=== PATIENT | female | born 1960 | race Caucasian/White ===

== ENCOUNTER 2019-09-28 23:46 | Emergency (ER) | payer BC ==
--- NOTE | 2019-09-29 07:37 | RAD ---
XR Shoulder Rt 3 View STANDARD History: Dislocation Comparison: None. Findings: No acute fracture or malalignment. Over a rib fractures. Advanced degenerative changes of t he acromioclavicular joint. Osteophyte formation of the glenoid. Impression: No acute osseous abnormality. No current dislocation.
== END 2019-09-29 00:51 | disposition home or self-care (01) ==
LOC: ERS 23:46
DX: M24.411 Recurrent dislocation, right shoulder (principal); I10 Essential (primary) hypertension
CPT/HCPCS: 23650

== ENCOUNTER 2020-10-05 12:01 | Inpatient (IN) | payer BC ==
[2020-10-05] MEDS ORDERED: Acetaminophen 325 MG TAB PO PRN (15:06)
[2020-10-05] MEDS ORDERED: Famotidine 20 MG TAB PO PRN (15:06)
[2020-10-05 15:53] VITALS: BMI 29.7
[2020-10-05] MEDS: cefTRIAXone\\ROCEPHIN 2 GM in Sodium Chloride 0.9% 100 ML IVPB SCH (18:00)
[2020-10-05] MEDS ORDERED: VANCOMYCIN 2 GRAM/400 ML BAG 2 GM in Premix Bag 1 BAG IVPB SCH (18:00)
[2020-10-06] MEDS: Vancomycin 1.5 GRAM/300 ML BAG 1.5 GM in Premix Bag 1 BAG IVPB SCH ×2 (05:30→17:55)
[2020-10-06 05:47] LABS: #Eosinphils 0.3 thou/uL (0.0-0.7); #Lymphocytes 1.1 thou/uL (1.20-3.40); #Monocytes 0.6 thou/uL (0.11-0.59); #Neutrophils 2.5 thou/uL (1.40-6.50); %Basophils 1.1 % (0.0-1.0); %Eosinophils 6.7 % (0.0-10.0); %Lymphocytes 24.2 % (21.0-51.0); %Monocytes 13.6 % (0.0-10.0); %Neutrophils 54.4 % (42.0-75.0); Hemoglobin 11.8 g/dL (12.0-16.0); Mean Corpuscular HGB CONC 33.6 g/dL (32.0-36.0); Mean Corpuscular Hemoglobin 32.8 pg (27.0-31.0); Mean Corpuscular Volume 97.6 fL (78.0-98.0); Mean Platelet Volume 7.4 fL (7.4-10.4); Platelet Count 294 thou/uL (130-400); RBC Distribution Width 11.4 % (11.5-14.5); Red Blood Cell (RBC) Count 3.58 mill/uL (4.20-5.40); White Blood Cell (WBC) Count 4.5 thou/uL (4.8-10.8)
[2020-10-06 06:13] LABS: ALT (SGPT) 15 U/L (8-55); AST (SGOT) 16 U/L (5-34); Albumin 3.5 g/dL (3.4-4.8); Alkaline Phosphatase 56 U/L (40-110); Anion Gap 11 mmol/L (10-20); BUN (Urea Nitrogen) 13 mg/dL (9.8-20.1); Bilirubin, Total 0.3 mg/dL (0.2-1.2); Calc. Creatinine Clearance 113 mL/min (70-130); Calcium 9.3 mg/dL (7.8-10.44); Carbon Dioxide 26 mmol/L (23-31); Chloride 107 mmol/L (98-107); Globulin 3.3 g/dL (2.4-3.5); Glucose 81 mg/dL (80-115); Potassium 4.2 mmol/L (3.5-5.1); Protein, Total 6.8 g/dL (5.8-8.1); Sodium 140 mmol/L (136-145)
[2020-10-06] MEDS: DULoxetine 30 MG CAP PO SCH (08:26)
[2020-10-06] MEDS ORDERED: Enoxaparin Sodium 40 MG/0.4 ML SYRINGE SC SCH (09:00)
[2020-10-06] MEDS ORDERED: Amlodipine 5 mg/Benazepril 20 mg CAP PO SCH (09:00)
[2020-10-06 11:37] LABS: SARS-CoV-2 PCR by NAA Not Detected (NotDetected)
[2020-10-06] MEDS: Lactated Ringer's 1,000 ML IV SCH ×2 (12:57→21:15)
[2020-10-06] MEDS ORDERED: Sodium Chloride 0.9% 100 ML ONE (15:59)
[2020-10-06] MEDS ORDERED: cefTRIAXone\\ROCEPHIN 2 GM VIAL ONE (15:59)
[2020-10-06] MEDS ORDERED: Fentanyl 100 MCG/2 ML VIAL ONE ×2 (16:09→17:07)
[2020-10-06] MEDS ORDERED: Midazolam HCl 2 mg/2 ml Vial ONE (16:10)
[2020-10-06] MEDS ORDERED: PROPOFOL 200 MG/20 ML VIAL ONE (16:21)
[2020-10-06] MEDS ORDERED: Ondansetron PF 4 MG/2 ML Vial ONE (16:21)
[2020-10-06] MEDS ORDERED: Acetaminophen 500 MG TAB PO PRN (16:53)
[2020-10-06] MEDS ORDERED: traMADol HCl 50 MG TAB PO PRN ×2 (16:53)
[2020-10-06] MEDS ORDERED: PACU-Morphine 4MG/ML VIAL SLOW IVP PRN (17:08)
[2020-10-06] MEDS ORDERED: Promethazine HCl 25 MG/ML VIAL IM PRN (17:08)
[2020-10-06] MEDS ORDERED: Promethazine HCl 25 MG/ML VIAL IVPB PRN (17:08)
[2020-10-06] MEDS ORDERED: Ondansetron HCl/PF 4 MG/2 ML Vial IVP PRN (17:08)
[2020-10-06] MEDS: cefTRIAXone\\ROCEPHIN 2 GM in Sodium Chloride 0.9% 100 ML IVPB SCH (17:47)
[2020-10-06] MEDS: Enoxaparin Sodium 40 MG/0.4 ML SYRINGE SC SCH (21:14)
[2020-10-07] MEDS: Lactated Ringer's 1,000 ML IV SCH ×2 (05:47→17:22)
[2020-10-07] MEDS: Vancomycin 1.5 GRAM/300 ML BAG 1.5 GM in Premix Bag 1 BAG IVPB SCH ×2 (06:25→19:12)
[2020-10-07] MEDS: DULoxetine 30 MG CAP PO SCH (08:12)
[2020-10-07] MEDS: cefTRIAXone\\ROCEPHIN 2 GM in Sodium Chloride 0.9% 100 ML IVPB SCH (18:31)
[2020-10-07] MEDS: Enoxaparin Sodium 40 MG/0.4 ML SYRINGE SC SCH (20:07)
[2020-10-08] MEDS: Lactated Ringer's 1,000 ML IV SCH (05:50)
[2020-10-08] MEDS: Vancomycin 1.5 GRAM/300 ML BAG 1.5 GM in Premix Bag 1 BAG IVPB SCH (05:50)
[2020-10-08] MEDS: DULoxetine 30 MG CAP PO SCH (08:26)
[2020-10-08 10:52] VITALS: BP 120/68; TEMP 97.8
== END 2020-10-08 14:55 | disposition home or self-care (01) | DRG 504 ==
LOC: ONC 13:22
PROVIDERS: ADMIT Student in an Organized Health Care Education/Training Program; ATTEND Student in an Organized Health Care Education/Training Program
PROC: 0Y6S0Z1 Detachment at Left 2nd Toe, High, Open Approach (ICD-10-PCS; principal; 2020-10-06)
DX: M86.8X8 Other osteomyelitis, other site (principal); L03.116 Cellulitis of left lower limb; G62.9 Polyneuropathy, unspecified; M20.42 Other hammer toe(s) (acquired), left foot; M20.41 Other hammer toe(s) (acquired), right foot; D50.9 Iron deficiency anemia, unspecified; I10 Essential (primary) hypertension; M14.671 Charcot's joint, right ankle and foot; Z91.040 Latex allergy status; Z88.2 Allergy status to sulfonamides; Z79.899 Other long term (current) drug therapy; Z90.49 Acquired absence of other specified parts of digestive tract; Z98.51 Tubal ligation status
CPT/HCPCS: 36415; 80053; 80202; 82565; 85025; 85652; 86140; 87040; 88305; 88311; J0696; J1650; J2250; J2405; J2704; J3010; J3370; J3490; U0003; U0005

== ENCOUNTER 2021-01-15 15:54 | Outpatient (CLI) | payer BC | END 2021-01-15 15:55 | disposition home or self-care (01) | LOC: BICRAD 15:54 | PROVIDERS: ATTEND Student in an Organized Health Care Education/Training Program | DX: L03.032 Cellulitis of left toe (principal); M79.89 Other specified soft tissue disorders; M21.42 Flat foot [pes planus] (acquired), left foot; M19.072 Primary osteoarthritis, left ankle and foot ==

== ENCOUNTER 2021-03-24 10:55 | Outpatient (CLI) | payer BC | END 2021-03-24 10:56 | disposition home or self-care (01) | LOC: BICMAMMO 10:55 | PROVIDERS: ATTEND Student in an Organized Health Care Education/Training Program | DX: Z12.31 Encounter for screening mammogram for malignant neoplasm of breast (principal) | CPT/HCPCS: 77063; 77067 ==

== ENCOUNTER 2022-07-04 13:52 | Outpatient (CLI) | payer BC | END 2022-07-04 13:53 | disposition home or self-care (01) | LOC: BICMAMMO 13:52 | PROVIDERS: ATTEND Student in an Organized Health Care Education/Training Program | DX: Z12.31 Encounter for screening mammogram for malignant neoplasm of breast (principal); Z13.820 Encounter for screening for osteoporosis; M85.851 Other specified disorders of bone density and structure, right thigh; M85.852 Other specified disorders of bone density and structure, left thigh | CPT/HCPCS: 77063; 77067; 77080 ==

== ENCOUNTER 2024-12-20 15:23 | Outpatient (CLI) | payer MEDICARE | END 2024-12-20 15:24 | disposition home or self-care (01) | LOC: BICMAMMO 15:23 | PROVIDERS: ATTEND Family Medicine | DX: Z12.31 Encounter for screening mammogram for malignant neoplasm of breast (principal); R92.333 Mammographic heterogeneous density, bilateral breasts | CPT/HCPCS: 77063; 77067 ==